=== PATIENT | male | born 1955 | race Caucasian/White ===

== ENCOUNTER 2019-02-15 23:36 | Emergency (ER) | payer OTHER ==
[2019-02-16 00:02] VITALS: BP 108/48; PULSE 78; TEMP 97.6; BMI 35.6
--- NOTE | 2019-02-16 00:10 | PDOC ---
History of Present Illness - General Chief Complaint: Injury Stated Complaint: FALL Time Seen by Provider: 02/16/19 00:10 Past History - Past Medical History Allergies/Adverse Reactions: Allergies Allergy/AdvReac Type Severity Reaction Status Date / Time No Known Drug Allergies Allergy Verified 02/16/19 00:32 Home Medications: Ambulatory Orders Cyanocobalamin [Vitamin B12 -] 100 mcg PO DAILY 02/16/19 Folic Acid - 1 mg PO DAILY 02/16/19 Furosemide [Lasix -] 20 mg PO DAILY 02/16/19 Glipizide [Glucotrol -] 5 mg PO DAILY 02/16/19 Insulin Sliding Scale [Novolog Vial Sliding Scale -] 0 units SQ ACHS 02/16/19 Lactulose [Generlac] 10 gm PO BID 02/16/19 Lorazepam [Ativan] 2 mg PO DAILY PRN 02/16/19 Magnesium Hydrox 2400MG/30Ml [Milk of Magnesia -] 30 ml PO ONCE 02/16/19 Phenytoin Oral Suspension [Dilantin Oral Suspension 100 MG/4 ML] 100 mg PO TID 02/16/19 Rifaximin [Xifaxan] 550 mg PO BID 02/16/19 Rivastigmine [Exelon Patch 9.5 mg/24 Hours] 1 each TD DAILY 02/16/19 Rosuvastatin [Crestor -] 20 mg PO HS 02/16/19 Sertraline HCl [Zoloft -] 50 mg PO DAILY 02/16/19 Spironolactone [Aldactone] 100 mg PO HS 02/16/19 COPD: No Diabetes: Yes HTN: Yes Hypercholesterolemia: Yes Psychiatric Problems: Yes (schizophrenia, Bipolar disorder, Anxiety disorder, Schizoaffective disorder) - Immunization History Immunization Up to Date: Yes - Suicide/Smoking/Psychosocial Hx Smoking History: Never smoked Have you smoked in the past 12 months: No Information on smoking cessation initiated: No Hx Alcohol Use: No Drug/Substance Use Hx: No *Physical Exam - Vital Signs Last Vital Signs Temp Pulse Resp BP Pulse Ox 97.6 F 78 16 108/48 L 96 02/15/19 23:54 02/15/19 23:54 02/15/19 23:54 02/15/19 23:54 02/15/19 23:54 Medical Decision Making - Medical Decision Making 63M with PMH of bipolar disorder, schizoaffective disorder, cirrhosis, DM, GERD , HLD presenting sent by [facility] for evaluation of fall. Patient without acute complaints. He remembers falling because he slipped on some water and fall onto his left side. No loss of consciousness, nausea, or vomiting. Did not hit his head. Denies chest pain or shortness of breath. ROS: Constitutional: no fever, no chills HEENT: no throat pain, no dysphagia Cardiovascular: no chest pain, no palpitations Respiratory: no cough, no shortness of breath Gastrointestinal: no abdominal pain, no nausea Genitourinary: no dysuria, no hematuria Musculoskeletal: no back pain, no leg pain Skin: no rash, no itching Neurologic: no headache, no weakness PE: General: Awake, alert, in no acute distress, poor hygiene Head: No signs of trauma Eyes: EOMI, sclera anicteric ENT: Moist mucus membranes Neck: Normal ROM, supple, no midline tenderness Lungs: Lungs clear, Normal breath sounds Cardio: Regular rhythm, S1 and S2 present Abdomen: Soft, nontender. No guarding, no rebound, no masses Extremities: Normal range of motion, Distal pulses present. No pain elicited upon rocking pelvis. SKIN: Warm, Dry, normal turgor Neurologic: Cranial nerves II through XII intact. Normal speech, sensation, strength, coordination, and gait. ED Course/MDM: DDX including but not limited to mechanical fall, fracture, brain bleed, syncope CT Head, Cspine Patient without acute complaints and able to ambulate; no analgesia needed at this time 02/16/19 00:10 [facility] paperwork: "resident was found in sitting position on the floor" Call to [facility] ; Spoke with Angelita Mesa Found on floor Not on any anticoagulation Roommate reported that the patient was leaning on a table when he lost his balance and fell hard about two hours ago Patient was found on the floor sitting She states that was not walking at his baseline. He usually ambulates on his own without a walker/cane/assistance 02/16/19 00:17 CT head and cspine without acute pathology, per [facility]: "FINDINGS: Cervical spine: Negative for cervical spine fracture or malalignment. Brain: Involutional changes. No acute abnormality. No hemorrhage. Osseous structures are intact." Plan to discharge. 02/16/19 02:24 [facility] at [facility] updated 02/16/19 02:25 Patient awaiting transportation back to [facility] *DC/Admit/Observation/Transfer Diagnosis at time of Disposition: Fall Qualifiers: Encounter type: initial encounter Qualified Code(s): W19.XXXA - Unspecified fall, initial encounter - Discharge Dispostion Disposition: HOME Condition at time of disposition: Stable - Referrals Referrals: Bassam Gonzalez MD [Primary Care Provider] - - Patient Instructions Printed Discharge Instructions: How to Prevent Falls Additional Instructions: You came into the emergency department. after a fall. We performed a CT scan of your head and neck which did not indicate acute pathology. Follow-up with your primary care doctor this week to discuss this ED visit and to ensure you are progressing appropriately. Call and make an appointment. Your workup is not complete until you do so. Immediate medical attention is required if you experience: severe headache, fever and chills, nausea and vomiting, lightheadedness, inability to breathe or very rapid breathing, rapid irregular heartbeat, chest pain, or trouble breathing. If you think you are having an emergency, call for emergency medical services or present to the emergency department right away - Post Discharge Activity
--- NOTE | 2019-02-16 00:54 | PDOC ---
Documentation entered by Jason Gonzalez SCRIBE, acting as scribe for Imelda Nunez DO. Imelda Nunez DO: This documentation has been prepared by the Carlos amos Xhesika, SCRIBE, under my direction and personally reviewed by me in its entirety. I confirm that the documentation accurately reflects all work, treatment, procedures, and medical decision making performed by me. Attending Attestation - Resident Resident Name: FridaVanessa - ED Attending Attestation I have performed the following: I have examined & evaluated the patient, The case was reviewed & discussed with the resident, I agree w/resident's findings & plan, Exceptions are as noted - HPI HPI: 02/16/19 00:41 The patient is a 63 year old male with a significant PMH of DM, HTN, schizophrenia, Bipolar disorder, Anxiety disorder, Schizoaffective disorder who presents to the emergency department, from [facility] s/p unwitnessed fall. As per [place] documents the patient was found on the floor sitting. Patient states he was walking, slipped on water and fell on his outstretched hands landing on his L side. The patient denies LOC or hitting his head. Patient was able to ambulate after fall. The patient denies chest pain, shortness of breath, headache and dizziness. Denies fever, chills, cough, nausea, vomiting, diarrhea and constipation. Denies dysuria, frequency, urgency and hematuria. Allergies: NKDA PCP: Bassam Wyman - Physicial Exam PE: 02/16/19 00:42 GENERAL: Awake, alert, and fully oriented, in no acute distress HEAD: No signs of trauma NECK: Normal ROM, supple, no lymphadenopathy, JVD, or masses LUNGS: Breath sounds equal, clear to auscultation bilaterally. No wheezes, and no crackles HEART: Regular rate and rhythm, normal S1 and S2, no murmurs, rubs or gallops ABDOMEN: Soft, nontender, normoactive bowel sounds. No guarding, no rebound. No masses EXTREMITIES: Normal range of motion, no edema. No clubbing or cyanosis. No cords, erythema, or tenderness NEUROLOGICAL: Cranial nerves II through XII grossly intact. No c-spine tenderness. Normal gait SKIN: Warm, Dry, normal turgor, no rashes or lesions noted. - Medical Decision Making 02/16/19 00:52 I, Dr. Imelda Nunez, DO, attest that this document has been prepared under my direction and personally reviewed by me in its entirety. I further attest, that it accurately reflects all work, treatment, procedures and medical decision -making performed by me. a/p: 63yo male from [place] with a mechanical fall -slipped on water and fell landing on his left side -pt denies hitting his head or loc -no anticoags on med list -finger stick 113 in the ED -no focal findings on neuro - moves all extremities and ambulates with a steady gait -will send for head ct/c spine -will monitor and reassess -most likely dc back to [place] 02/16/19 02:34 ct scans are negative for acute findings pt ambulatory in the ED with a steady gait stable for dc back to [facility]
== END 2019-02-16 04:32 | disposition home or self-care (01) ==
LOC: JER 23:36
DX: Z04.3 Encounter for examination and observation following other accident (principal); W01.0XXA Fall on same level from slipping, tripping and stumbling without subsequent striking against object, initial encounter; Y93.89 Activity, other specified; Y92.128 Other place in nursing home as the place of occurrence of the external cause; Y99.8 Other external cause status; I10 Essential (primary) hypertension; E11.9 Type 2 diabetes mellitus without complications; F41.9 Anxiety disorder, unspecified; F31.9 Bipolar disorder, unspecified; F25.9 Schizoaffective disorder, unspecified
CPT/HCPCS: 70450-TC; 72125-TC; 82962; 99281-25

== ENCOUNTER 2021-02-08 00:42 | Inpatient (IN) | payer OTHER ==
[2021-02-08 01:02] VITALS: BMI 37.5
[2021-02-08 02:06] LABS: BASO % 0.3 % (0-2.0); EOS % 0.1 % (0-4.5); HEMATOCRIT 40.3 % (35.4-49); LYMPH % 14.1 % (8-40); MCH 32.4 pg (25.7-33.7); MCHC 34.8 g/dl (32.0-35.9); MEAN PLT VOLUME 8.6 fl (7.5-11.1); MONO % 10.6 % (3.8-10.2); NEUT % 74.9 % (42.8-82.8); PLATELET COUNT 86 10^3/uL (134-434); RBC 4.34 M/mm3 (4.00-5.60); RDW 14.5 % (11.9-15.9); WHITE BLOOD COUNT 6.8 K/mm3 (4.0-10.0)
[2021-02-08 02:23] LABS: ALBUMIN 3.4 g/dl (3.4-5.0); BLOOD UREA NITROGEN 14.5 mg/dL (7-18); CALCIUM 8.5 mg/dL (8.5-10.1); MAGNESIUM 2.3 mg/dL (1.8-2.4)
[2021-02-08 02:27] LABS: CREATININE 0.9 mg/dL (0.55-1.3)
[2021-02-08 02:33] LABS: N-TERMINAL BNP 180.3 pg/ml (5-125)
[2021-02-08 02:40] LABS: INR 1.68 (0.83-1.09); PROTHROMBIN TIME (PATIENT) 20.3 SEC (9.7-13.0)
[2021-02-08 02:42] LABS: ACTIVATED PTT 30.9 SECONDS (25.2-36.5)
[2021-02-08 02:42] LABS: EPI CELLS 13 /uL (0-25.1); HYALINE CASTS 3 /uL (0-3.1); PH,URINE 5.5 (5.0-8.0); URINE APPEARANCE CLEAR; URINE BACTERIA 2 /uL (0-1359); URINE BILIRUBIN 1+ (NEGATIVE); URINE COLOR DK YELLOW; URINE GLUCOSE (UA) NEGATIVE (NEGATIVE); URINE KETONE 1+ (NEGATIVE); URINE LEUK ESTERASE TRACE (NEGATIVE); URINE NITRITE NEGATIVE (NEGATIVE); URINE PROTEIN 1+ (NEGATIVE); URINE WBC 45 /uL (0-25.8)
[2021-02-08 02:51] LABS: METHADONE, UR NEGATIVE (NEGATIVE); PHENCYCLIDINE,URINE NEGATIVE (NEGATIVE)
[2021-02-08 02:53] LABS: COCAINE, UR NEGATIVE (NEGATIVE)
[2021-02-08 03:55] LABS: OPIATES, URI NEGATIVE (NEGATIVE); URINE AMPHETAMINES NEGATIVE (NEGATIVE); URINE BARBITURATES NEGATIVE (NEGATIVE); URINE BENZODIAZEPINES POSITIVE (NEGATIVE)
[2021-02-08 03:55] LABS: TOT PROT 8.1 g/dl (6.4-8.2)
[2021-02-08 04:07] LABS: URINE CRYSTALS PRESENT /hpf; URINE RBC 15 /uL (0-23.9)
[2021-02-08] MEDS ORDERED: LACTULOSE 20 GM/30 ML UDC (FOR RECTAL USE ONLY) PR ONE (05:00)
[2021-02-08 06:46] LABS: ARTERIAL BLD GAS O2 SATURATION 95.4 % (95-98); ARTERIAL BLOOD GAS PO2 74.4 mmHg (80-100); ARTERIAL BLOOD GAS pH 7.426 (7.350-7.450)
[2021-02-08 06:49] LABS: ALLENS TEST POSITIVE
[2021-02-08] MEDS ORDERED: LACTULOSE 20 GM/30 ML UDC (FOR ORAL USE ONLY) NGT SCH (14:00)
[2021-02-08] MEDS ORDERED: LACTULOSE 20 GM/30 ML UDC (FOR RECTAL USE ONLY) PR SCH (14:00)
[2021-02-08] MEDS: PHENYTOIN ORAL SUSP 125 MG/5 ML PO SCH ×2 (15:03→21:50)
[2021-02-08] MEDS: LACTULOSE 20 GM/30 ML UDC (FOR ORAL USE ONLY) PO SCH ×2 (15:45→21:42)
[2021-02-08] MEDS: RIFAXIMIN 550 MG TABLET PO SCH (21:43)
[2021-02-09] MEDS: PHENYTOIN 100 MG/4 ML U-D CUP PO SCH ×3 (05:56→21:14)
[2021-02-09] MEDS: LACTULOSE 20 GM/30 ML UDC (FOR ORAL USE ONLY) PO SCH ×3 (05:56→21:14)
[2021-02-09] MEDS ORDERED: PT OWN MED DRAWER 7, Y5N ONE ×3 (09:08→20:30)
[2021-02-09 09:18] LABS: INR 1.52 (0.83-1.09); PROTHROMBIN TIME (PATIENT) 18.5 SEC (9.7-13.0)
[2021-02-09 09:27] LABS: BASO % 0.1 % (0-2.0); EOS % 0.6 % (0-4.5); HEMATOCRIT 40.3 % (35.4-49); HEMOGLOBIN 14.3 GM/dL (11.7-16.9); MCH 33.1 pg (25.7-33.7); MCHC 35.6 g/dl (32.0-35.9); MEAN CELL VOLUME 92.9 fl (80-96); MEAN PLT VOLUME 9.2 fl (7.5-11.1); MONO % 9.3 % (3.8-10.2); PLATELET COUNT 93 10^3/uL (134-434); RBC 4.34 M/mm3 (4.00-5.60); RDW 14.3 % (11.9-15.9)
[2021-02-09] MEDS ORDERED: VIT B12 PO SCH (10:00)
[2021-02-09] MEDS ORDERED: APIXABAN 5 MG TABLET PO SCH (10:00)
[2021-02-09] MEDS ORDERED: RIFAXIMIN 550 MG TABLET PO SCH (10:00)
[2021-02-09] MEDS ORDERED: [UNRECOGNIZED DRUG - OTHER] PO SCH (10:00)
[2021-02-09] MEDS ORDERED: FOLATE PO SCH (10:00)
[2021-02-09] MEDS ORDERED: INTRINSIC FACT PO SCH (10:00)
[2021-02-09 10:06] LABS: ALBUMIN 3.7 g/dl (3.4-5.0); BLOOD UREA NITROGEN 13.5 mg/dL (7-18); CALCIUM 9.2 mg/dL (8.5-10.1)
[2021-02-09 10:09] LABS: CREATININE 0.8 mg/dL (0.55-1.3)
[2021-02-09 10:10] LABS: BILIRUBIN,TOTAL 1.4 mg/dL (0.2-1); TOT PROT 7.2 g/dl (6.4-8.2)
[2021-02-09] MEDS: PANTOPRAZOLE 20 MG TABLET PO SCH (10:10)
[2021-02-09] MEDS: SPIRONOLACTONE 25 MG TABLET PO SCH (10:10)
[2021-02-09] MEDS: RIFAXIMIN 550 MG TABLET PO SCH ×2 (10:10→21:14)
[2021-02-09] MEDS: RIVASTIGMINE TARTRATE 3 MG CAPSULE PO SCH (10:11)
[2021-02-09] MEDS: FOLIC ACID 1 MG TABLET (FP) PO SCH (10:11)
[2021-02-09] MEDS: APIXABAN 5 MG TABLET PO SCH ×2 (13:58→21:14)
[2021-02-10] MEDS: LACTULOSE 20 GM/30 ML UDC (FOR ORAL USE ONLY) PO SCH ×3 (06:06→22:53)
[2021-02-10] MEDS: PHENYTOIN 100 MG/4 ML U-D CUP PO SCH ×3 (06:07→22:53)
[2021-02-10] MEDS: FOLIC ACID 1 MG TABLET (FP) PO SCH ×2 (10:41→15:10)
[2021-02-10] MEDS: SPIRONOLACTONE 25 MG TABLET PO SCH ×2 (10:41→15:10)
[2021-02-10] MEDS: RIVASTIGMINE TARTRATE 3 MG CAPSULE PO SCH ×2 (10:41→15:09)
[2021-02-10] MEDS: APIXABAN 5 MG TABLET PO SCH ×3 (10:41→22:53)
[2021-02-10] MEDS: RIFAXIMIN 550 MG TABLET PO SCH ×2 (10:42→22:53)
[2021-02-10] MEDS: PANTOPRAZOLE 20 MG TABLET PO SCH ×2 (10:42→15:11)
[2021-02-10] MEDS ORDERED: PT OWN MED DRAWER 7, Y5N ONE (12:50)
[2021-02-10 14:18] LABS: ALBUMIN 3.2 g/dl (3.4-5.0)
[2021-02-10 14:20] LABS: BILIRUBIN,DIRECT 0.4 mg/dL (0.0-0.2)
[2021-02-10 14:22] LABS: BILIRUBIN,TOTAL 1.2 mg/dL (0.2-1); TOT PROT 6.6 g/dl (6.4-8.2)
[2021-02-10] MEDS ORDERED: MELATONIN 5 MG TABLETS PO ONE (21:52)
[2021-02-11] MEDS: PHENYTOIN 100 MG/4 ML U-D CUP PO SCH ×3 (05:31→21:15)
[2021-02-11] MEDS: LACTULOSE 20 GM/30 ML UDC (FOR ORAL USE ONLY) PO SCH ×3 (05:31→21:15)
[2021-02-11 08:23] LABS: INR 1.79 (0.83-1.09); PROTHROMBIN TIME (PATIENT) 21.7 SEC (9.7-13.0)
[2021-02-11] MEDS ORDERED: PT OWN MED DRAWER 7, Y5N ONE ×2 (08:50→22:28)
[2021-02-11] MEDS: RIFAXIMIN 550 MG TABLET PO SCH ×2 (09:00→21:15)
[2021-02-11] MEDS: SPIRONOLACTONE 25 MG TABLET PO SCH (09:01)
[2021-02-11] MEDS: FOLIC ACID 1 MG TABLET (FP) PO SCH (09:01)
[2021-02-11] MEDS: APIXABAN 5 MG TABLET PO SCH ×2 (09:01→21:15)
[2021-02-11] MEDS: PANTOPRAZOLE 20 MG TABLET PO SCH (09:01)
[2021-02-11] MEDS: RIVASTIGMINE TARTRATE 3 MG CAPSULE PO SCH (09:01)
[2021-02-12] MEDS: PHENYTOIN 100 MG/4 ML U-D CUP PO SCH (05:31)
[2021-02-12] MEDS: LACTULOSE 20 GM/30 ML UDC (FOR ORAL USE ONLY) PO SCH (05:31)
[2021-02-12] MEDS ORDERED: PT OWN MED DRAWER 7, Y5N ONE ×2 (09:16→09:18)
[2021-02-12] MEDS: APIXABAN 5 MG TABLET PO SCH (09:21)
[2021-02-12] MEDS: SPIRONOLACTONE 25 MG TABLET PO SCH (09:21)
[2021-02-12] MEDS: PANTOPRAZOLE 20 MG TABLET PO SCH (09:22)
[2021-02-12] MEDS: RIFAXIMIN 550 MG TABLET PO SCH (09:22)
[2021-02-12] MEDS: FOLIC ACID 1 MG TABLET (FP) PO SCH (09:22)
[2021-02-12] MEDS: RIVASTIGMINE TARTRATE 3 MG CAPSULE PO SCH (09:22)
[2021-02-12 09:29] VITALS: BP 140/52; PULSE 60; TEMP 97.5
== END 2021-02-12 12:45 | DRG 442 ==
LOC: JER 00:42 → JERBED 04:52 → J4W 10:46
PROVIDERS: ADMIT Internal Medicine; ATTEND Internal Medicine
PROC: 4A10X4Z Monitoring of Central Nervous Electrical Activity, External Approach (ICD-10-PCS; principal; 2021-02-11)
DX: K72.90 Hepatic failure, unspecified without coma (principal); E87.0 Hyperosmolality and hypernatremia; E72.20 Disorder of urea cycle metabolism, unspecified; F20.9 Schizophrenia, unspecified; F31.9 Bipolar disorder, unspecified; E11.9 Type 2 diabetes mellitus without complications; I10 Essential (primary) hypertension; E78.5 Hyperlipidemia, unspecified; I48.91 Unspecified atrial fibrillation; Z79.01 Long term (current) use of anticoagulants; Z79.84 Long term (current) use of oral hypoglycemic drugs; D69.6 Thrombocytopenia, unspecified; G30.9 Alzheimer's disease, unspecified; F02.80 Dementia in other diseases classified elsewhere, unspecified severity, without behavioral disturbance, psychotic disturbance, mood disturbance, and anxiety; E66.9 Obesity, unspecified; Z68.37 Body mass index [BMI] 37.0-37.9, adult; R29.6 Repeated falls; K74.60 Unspecified cirrhosis of liver; G40.909 Epilepsy, unspecified, not intractable, without status epilepticus
CPT/HCPCS: 36415; 36600; 70450-TC; 71045-TC-FY; 76700-TC; 80053; 80061; 80076; 80185; 80307; 81003; 82140; 82436; 82550; 82553; 82607; 82803; 82962; 82977; 83036; 83605; 83735; 83880; 83935; 84133; 84300; 84443; 84484; 85025; 85610; 85730; 87040; 93005; 93010; 93306-TC; 95816; 99285-25; C9803; U0003; U0005

== ENCOUNTER 2022-06-27 08:48 | Inpatient (IN) | payer OTHER ==
[2022-06-27] MEDS ORDERED: levETIRAcetam 500 MG/5 ML INJECTION VIAL IVPB ONE ×2 (09:02→09:51)
[2022-06-27] MEDS ORDERED: EPINEPHrine 1:10,000 (P-F SYR) 1 MG/10 ML DISP.SYRIN ONE (09:07)
[2022-06-27 09:24] VITALS: BMI 36.6
[2022-06-27] MEDS ORDERED: LORazepam 2 MG/ML SDV VIAL IVPUSH ONE (09:53)
[2022-06-27] MEDS ORDERED: SODIUM CHLORIDE 0.9% 500 ML INFUS.BAG IV ONE (09:53)
[2022-06-27 09:59] LABS: VENOUS BASE EXCESS -3.7 mmol/L (-2-2); VENOUS O2 SATURATION 93.6 % (70-80); VENOUS PCO2 34.7 mmHg (38-52); VENOUS PH 7.386 (7.310-7.410)
[2022-06-27 10:01] LABS: MCH 32.2 pg (25.7-33.7); MCHC 32.5 g/dl (32.0-35.9); MEAN CELL VOLUME 99.3 fl (80-96); MEAN PLT VOLUME 11.4 fl (7.5-11.1); PLATELET COUNT 54 10^3/uL (134-434); RBC 3.73 M/mm3 (4.00-5.60); RDW 17.9 % (11.9-15.9); WHITE BLOOD COUNT 4.6 K/mm3 (4.0-10.0)
[2022-06-27 10:07] LABS: INR 3.06 (0.83-1.09); PROTHROMBIN TIME (PATIENT) 35.6 SEC (9.7-13.0)
[2022-06-27 10:10] LABS: ACTIVATED PTT 57.2 SECONDS (25.2-36.5)
[2022-06-27 10:22] LABS: EPI CELLS 13 /uL (0-25.1); HYALINE CASTS 1 /uL (0-3.1); PH,URINE 5.5 (5.0-8.0); URINE APPEARANCE CLOUDY; URINE BACTERIA 1630 /uL (0-1359); URINE BILIRUBIN 2+ (NEGATIVE); URINE COLOR ORANGE; URINE GLUCOSE (UA) NEGATIVE (NEGATIVE); URINE KETONE TRACE (NEGATIVE); URINE LEUK ESTERASE TRACE (NEGATIVE); URINE NITRITE POSITIVE (NEGATIVE); URINE PROTEIN 1+ (NEGATIVE); URINE WBC 22 /uL (0-25.8)
[2022-06-27 10:22] LABS: CHLORIDE 133 mmol/L (98-107)
[2022-06-27 10:24] LABS: CALCIUM 7.6 mg/dL (8.5-10.1)
[2022-06-27 10:25] LABS: ALBUMIN 1.8 g/dl (3.4-5.0); BLOOD UREA NITROGEN 98.9 mg/dL (7-18); CO2 19 mmol/L (21-32); GLUCOSE,RANDOM 288 mg/dL (74-106)
[2022-06-27 10:28] LABS: CREATININE 3.5 mg/dL (0.55-1.3); SGOT/AST 124 U/L (15-37); SGPT/ALT 77 U/L (13-61)
[2022-06-27 10:29] LABS: TOT PROT 5.8 g/dl (6.4-8.2)
[2022-06-27 10:30] LABS: BILIRUBIN,TOTAL 4.9 mg/dL (0.2-1)
[2022-06-27 10:31] LABS: ALK PHOS 153 U/L (45-117)
[2022-06-27 10:31] LABS: LACTIC ACID 11.6 mmol/L (0.4-2.0)
[2022-06-27 10:43] LABS: ANISOCYTOSIS 1+; MACROCYTOSIS 0
[2022-06-27] MEDS ORDERED: VANCOMYCIN 1 GM in D5W (PRE-DOCKED) 1,000 MG/250 ML IVPB ONE (10:57)
[2022-06-27 11:03] LABS: ANION GAP 16 MMOL/L (8-16); SODIUM 168 mmol/L (136-145)
[2022-06-27] MEDS ORDERED: PIPERACILLIN/TAZOB 4.5 GM 4.5 GM in DEXTROSE 5%-WATER 100 ML IVPB ONE (11:07)
[2022-06-27 11:10] LABS: URINE RBC 328.1 /uL (0-23.9)
[2022-06-27] MEDS ORDERED: PIPERACILLIN/TAZOB 4.5 GM 4.5 GM/100 ML BAG IVPB ONE (11:10)
[2022-06-27] MEDS ORDERED: VANCOMYCIN/WATER FOR INJ (PEG) 1,000 MG/200 ML BAG IVPB ONE (11:10)
[2022-06-27] MEDS ORDERED: LACTATED RINGERS SOLUTION 1000 ML INFUS.BAG IV ONE (11:18)
[2022-06-27] MEDS ORDERED: LACTULOSE 20 GM/30 ML UDC (FOR RECTAL USE ONLY) PR ONE (12:08)
[2022-06-27 12:19] LABS: CHLORIDE 123 mmol/L (98-107)
[2022-06-27 12:21] LABS: BLOOD UREA NITROGEN 89.7 mg/dL (7-18); CO2 16 mmol/L (21-32)
[2022-06-27 12:24] LABS: CREATININE 3.2 mg/dL (0.55-1.3); SGPT/ALT 59 U/L (13-61)
[2022-06-27 12:25] LABS: SGOT/AST 97 U/L (15-37)
[2022-06-27 12:26] LABS: BILIRUBIN,TOTAL 3.9 mg/dL (0.2-1); TOT PROT 5.2 g/dl (6.4-8.2)
[2022-06-27 12:39] LABS: ALBUMIN 1.4 g/dl (3.4-5.0); ALK PHOS 117 U/L (45-117); ANION GAP 25 MMOL/L (8-16); CALCIUM 6.5 mg/dL (8.5-10.1); GLUCOSE,RANDOM 598 mg/dL (74-106); LACTIC ACID 10.6 mmol/L (0.4-2.0); SODIUM 163 mmol/L (136-145)
[2022-06-27] MEDS ORDERED: CALCIUM CHLORIDE 10% 1 GM/10 ML *VIAL IVPUSH ONE (12:52)
[2022-06-27] MEDS ORDERED: CALCIUM CHLORIDE 1 GM/10 ML *DISP.SYRIN ONE (12:53)
[2022-06-27 15:48] LABS: CHLORIDE 137 mmol/L (98-107)
[2022-06-27 15:50] LABS: BLOOD UREA NITROGEN 98.5 mg/dL (7-18); CO2 16 mmol/L (21-32); GLUCOSE,RANDOM 193 mg/dL (74-106)
[2022-06-27 15:53] LABS: CREATININE 3.4 mg/dL (0.55-1.3)
[2022-06-27 15:54] LABS: ANION GAP 19 MMOL/L (8-16); CALCIUM 8.3 mg/dL (8.5-10.1); SODIUM 172 mmol/L (136-145)
[2022-06-27] MEDS ORDERED: DEXTROSE 5%-0.45% SALINE 1,000 ML IV SCH (16:00)
[2022-06-27] MEDS ORDERED: LACTATED RINGERS SOLUTION 1,000 ML/1,000 ML INFUS.BAG IV SCH (16:15)
[2022-06-27] MEDS ORDERED: INSULIN SLIDING SCALE (NOVOLOG) 1 VIAL SQ SCH (16:30)
[2022-06-27 18:56] VITALS: TEMP 98.9
[2022-06-27] MEDS ORDERED: SODIUM CHLORIDE 500 ML IV ONE (20:00)
[2022-06-27 23:34] VITALS: BP 47/31; PULSE 67; RESP 18
[2022-06-27] MEDS ORDERED: SODIUM CHLORIDE 250 ML IV STA (23:34)
== END 2022-06-28 01:33 | disposition expired | DRG 871 ==
LOC: JER 08:48 → JERBED 11:27
PROVIDERS: ADMIT Internal Medicine; ATTEND Internal Medicine
DX: A41.89 Other specified sepsis (principal); E11.10 Type 2 diabetes mellitus with ketoacidosis without coma; U07.1 COVID-19; D68.9 Coagulation defect, unspecified; N17.9 Acute kidney failure, unspecified; N39.0 Urinary tract infection, site not specified; E87.0 Hyperosmolality and hypernatremia; K72.90 Hepatic failure, unspecified without coma; I10 Essential (primary) hypertension; G40.901 Epilepsy, unspecified, not intractable, with status epilepticus; D69.6 Thrombocytopenia, unspecified; G30.9 Alzheimer's disease, unspecified; F31.9 Bipolar disorder, unspecified; F20.9 Schizophrenia, unspecified; E78.5 Hyperlipidemia, unspecified; K76.82 Hepatic encephalopathy
CPT/HCPCS: 0241U-QW; 36415; 70450-TC; 71045-TC-FY; 80048; 80053; 80185; 81003; 82010; 82140; 82550; 82553; 82803; 82962; 83605; 84484; 85025; 85610; 85730; 86850; 86900; 86901; 87040; 87086; 87186; 93005; 93010; 99285-25